=== PATIENT | female | born 1985 | race Two or more races ===

== ENCOUNTER 2020-08-02 17:06 | Emergency (ER) | payer BC, OTHER ==
[~2020-08-02] VITALS: Ht 162.6 cm; Wt 106.6 kg
[2020-08-02] MEDS ORDERED: COTEMPLA XR-O25.9 MG PO (17:34)
[2020-08-02] MEDS ORDERED: CLARITIN10 M1 PO (17:34)
== END 2020-08-02 22:27 | disposition home or self-care (01) ==
LOC: ER 17:06
DX: S00.83XA Contusion of other part of head, initial encounter (principal); M54.2 Cervicalgia; R55 Syncope and collapse; V94.0XXA Hitting object or bottom of body of water due to fall from watercraft, initial encounter; Y93.19 Activity, other involving water and watercraft; Y92.838 Other recreation area as the place of occurrence of the external cause; Y99.8 Other external cause status